=== PATIENT | male | born 1975 | race Two or more races ===

== ENCOUNTER 2021-11-07 23:10 | Emergency (ER) | payer BC ==
[2021-11-07] MEDS ORDERED: Lidocaine 1% 30 ML SDV INJECT ONE (23:31)
[2021-11-07] MEDS ORDERED: Take Home: Sulfamethoxazole/Trimethoprim 800-160 MG Tab, 2 Tab Pack PO ONE (23:58)
[2021-11-08] MEDS ORDERED: Take Home: Sulfamethoxazole/Trimethoprim 800-160 MG Tab, 2 Tab Pack PO ONE (00:08)
[2021-11-08 01:06] VITALS: BP 132/87; PULSE 77
[2021-11-09] MEDS ORDERED: Sulfamethoxazole/Trimethoprim 800-160 MG Tab PO SCH (21:00)
== END 2021-11-08 00:22 | disposition home or self-care (01) ==
LOC: EDBD 23:10 → VM.ED 23:10
DX: L02.415 Cutaneous abscess of right lower limb (principal); I10 Essential (primary) hypertension; Z79.899 Other long term (current) drug therapy
CPT/HCPCS: 10060; 87070; 87077; 99283; 99283-25; A9270-GY